=== PATIENT | male | born 1940 | race Caucasian/White ===

== ENCOUNTER 2017-02-25 07:45 | Day surgery (SDC) | payer MEDICARE ==
[~2017-02-25] VITALS: Ht 175.3 cm; Wt 118.8 kg
[~2017-02-25 07:45] MED LIST: AGELESS MALE; ALTOPREV20 MG OR; ASPIRIN EC81 MG PO; CIPRO XR500 MG PO; DILAUDID 2MG2 MG/TA1 PO; EC-NAPROSYN500 MG OR; GLUCOPHAGE XR750 MG PO; HYDROCHLOROTH12.5 M1 PO; KEFLEX500 MG OR; LATANOPROST0.005 % OD; LISINOPRIL40 MG OR; METOPROL TAR25 M1 PO; METOPROL TAR50 MG OR; MULTI VIT PO; NAPROXEN500 MG PO
[2017-02-25 11:04] VITALS: BP 96/50
== END 2017-02-25 10:58 | disposition home or self-care (01) ==
LOC: ENDO 07:45 → ORM 12:45 → ENDO 12:45 → ORM 13:30
PROVIDERS: ATTEND Internal Medicine Gastroenterology
PROC: 0DBN8ZX Excision of Sigmoid Colon, Via Natural or Artificial Opening Endoscopic, Diagnostic (ICD-10-PCS; principal; 2017-02-25)
DX: Z12.11 Encounter for screening for malignant neoplasm of colon (principal); D12.5 Benign neoplasm of sigmoid colon; K64.8 Other hemorrhoids; K64.4 Residual hemorrhoidal skin tags; I10 Essential (primary) hypertension; E11.9 Type 2 diabetes mellitus without complications; E78.00 Pure hypercholesterolemia, unspecified; Z86.010 Personal history of colon polyps; Z80.0 Family history of malignant neoplasm of digestive organs; Z85.46 Personal history of malignant neoplasm of prostate